=== PATIENT | male | born 1970 | race Caucasian/White ===

== ENCOUNTER 2024-11-25 03:22 | Emergency (ER) | payer MEDICARE, OTHER ==
[2024-11-25 03:38] VITALS: TEMP 98.4
[2024-11-25] MEDS: MORPHINE SULFATE 4 MG/ML SYRINGE IV STA ×2 (03:50→04:38)
[2024-11-25] MEDS: NITROGLYCERIN OINT 1 INCH/GM PACKET TOPICAL STA (03:52)
[2024-11-25 04:11] LABS: Basophils # (A) 0.08 10*3/uL (0.00-0.10); Basophils % (A) 1.1 %; Eosinophils # (A) 0.05 10*3/uL (0.04-0.35); Eosinophils % (A) 0.7 %; HCT 39.6 % (39.6-50.0); HGB 14.2 g/dL (13.0-17.0); Lymphocytes # (A) 1.93 10*3/uL (0.90-5.00); Lymphocytes % (A) 26.0 %; MCH 32.0 pg (27.0-32.0); MCHC 35.9 g/dL (32.0-37.0); MCV 89.2 fL (80.0-97.0); Monocytes # (A) 0.55 10*3/uL (0.20-1.00); Monocytes % (A) 7.4 %; Neutrophils # (A) 4.77 10*3/uL (1.80-7.70); Neutrophils % (A) 64.4 %; Platelet Count 272 10*3/uL (140-440); RBC 4.44 10*6/uL (4.40-5.60); RDW 12.7 % (11.5-14.5); WBC 7.41 10*3/uL (4.50-10.00)
[2024-11-25] MEDS ORDERED: HEPARIN SODIUM 1,000 UN/ML (10ML VL) IV PRN (04:33)
[2024-11-25 04:49] LABS: ALT 34 U/L (4-49); African American GFR (CKD) >90 (>60 ml/min/1.73 sqM); Amylase 49 U/L (30-110); Anion Gap 11 mmol/L; Blood Urea Nitrogen 28 mg/dL (9-20); Calcium 9.4 mg/dL (8.4-10.2); Carbon Dioxide 20 mmol/L (22-30); Chloride 100 mmol/L (98-107); Glucose 408 mg/dL (74-99); Lipase 54 U/L (23-300); Non-African American GFR(CKD) >90 (>60 ml/min/1.73 sqM); Sodium 131 mmol/L (137-145)
[2024-11-25 04:58] LABS: AST 25 U/L (17-59); Albumin 3.7 g/dL (3.5-5.0); Alkaline Phosphatase 71 U/L (38-126); Magnesium 1.7 mg/dL (1.6-2.3); Potassium 4.5 mmol/L (3.5-5.1); Total Protein 6.5 g/dL (6.3-8.2)
--- NOTE | 2024-11-25 05:05 | XR ---
EXAM: XR Chest, 2 Views CLINICAL HISTORY: ITS.REASON XR Reason: Chest Pain TECHNIQUE: Frontal and lateral views of the chest. COMPARISON: No relevant prior studies available. FINDINGS: Lungs: No consolidation. No overt edema. Pleural space: No pleural effusion. No pneumothorax. Heart: Unremarkable. No cardiomegaly. Bones/joints: Unremarkable. No fracture or malalignment. Tubes, lines and devices: Pacemaker leads in place. IMPRESSION: No acute findings in the chest.
[2024-11-25] MEDS: INSULIN REGULAR 100 UNIT/ML VIAL (IV) SQ STA (05:30)
[2024-11-25] MEDS: HEPARIN SODIUM 1,000 UN/ML (10ML VL) IV ONE (05:31)
[2024-11-25] MEDS: HEPARIN SOD,PORK IN 0.45% NACL 25,000 UNIT in 0.45% NACL 1 250ML.BAG IV SCH (05:32)
[2024-11-25 06:24] LABS: Glucose,Whole Blood 321 mg/dL (70-110)
[2024-11-25 06:34] LABS: INR 0.9 (<1.2); Prothrombin Time 10.2 sec (10.0-12.5)
[2024-11-25] MEDS ORDERED: NITROGLYCERIN SL TABS 0.4 MG TAB SUBLINGUAL PRN (07:06)
--- NOTE | 2024-11-25 07:57 | ED ---
Chest Pain HPI - General Chief Complaint: Chest Pain Stated Complaint: Chest Pain Time Seen by Provider: 11/25/24 03:27 Source: patient, EMS Mode of arrival: EMS Limitations: no limitations - History of Present Illness Initial Comments: This patient is a 54-year-old man who states that he has history of previous GA and he believes 7 previous stents. Patient states that 2 to 3 hours ago while he was trying to sleep he noticed substernal left chest pain. There is radiation to the upper extremity, the back and the neck. He also was feeling some shortness of breath and nausea. MD Complaint: chest pain -: hour(s) Onset: during rest Pain Location: left chest Pain Radiation: LUE Severity: severe Quality: aching Consistency: constant Improves With: nothing Worsens With: exertion Anginal Symptoms: nausea, vomiting Treatments Prior to Arrival: nitroglycerin - Related Data Allergies Allergy/AdvReac Type Severity Reaction Status Date / Time No Known Allergies Allergy Verified 11/25/24 03:38 Review of Systems ROS Statement: Those systems with pertinent positive or pertinent negative responses have been documented in the HPI. ROS Other: All systems not noted in ROS Statement are negative. Constitutional: Denies: fever, chills, weakness Eyes: Denies: vision change Respiratory: Denies: cough, dyspnea, wheezes, hemoptysis Cardiovascular: Reports: chest pain. Denies: palpitations, edema, syncope Gastrointestinal: Reports: nausea, vomiting. Denies: abdominal pain, diarrhea, hematemesis, melena, hematochezia Genitourinary: Denies: dysuria, hematuria Musculoskeletal: Denies: back pain Skin: Denies: rash Neurological: Denies: headache, weakness, numbness EKG Findings - EKG Results: EKG: interpreted by ERMD, sinus rhythm (Rate 78 bpm), normal axis, normal ST/T - GA, Pacemaker, Normal: Myocardial infarction: anterior GA (old age or indeterminate) (Possible old anterolateral infarct) Past Medical History Past Medical History: Coronary Artery Disease (CAD), Chest Pain / Angina, Diabetes Mellitus, Hypertension, Myocardial Infarction (GA) History of Any Multi-Drug Resistant Organisms: None Reported Past Surgical History: AICD, Heart Catheterization With Stent, Hernia Repair Past Psychological History: No Psychological Hx Reported Smoking Status: Former smoker Past Alcohol Use History: None Reported Past Drug Use History: Marijuana General Exam Limitations: no limitations General appearance: alert, in no apparent distress Head exam: Present: atraumatic, normocephalic Eye exam: Present: normal appearance. Absent: scleral icterus, conjunctival injection ENT exam: Present: normal oropharynx Neck exam: Present: normal inspection Respiratory exam: Present: normal lung sounds bilaterally. Absent: respiratory distress, wheezes, rhonchi, stridor, accessory muscle use Cardiovascular Exam: Present: regular rate, normal rhythm, normal heart sounds. Absent: systolic murmur, diastolic murmur, rubs, gallop GI/Abdominal exam: Present: soft. Absent: distended, tenderness, guarding, rebound, rigid, mass Extremities exam: Present: normal inspection, normal capillary refill. Absent: pedal edema, calf tenderness Back exam: Present: normal inspection. Absent: CVA tenderness (R), CVA tenderness (L) Neurological exam: Present: alert Skin exam: Present: warm, dry, intact, normal color. Absent: rash Course Vital Signs 11/25/24 11/25/24 11/25/24 03:23 04:46 06:25 Temperature 98.4 F Pulse Rate 63 84 80 Respiratory 18 17 17 Rate Blood Pressure 139/93 140/94 155/99 O2 Sat by Pulse 98 96 98 Oximetry Chest Pain MDM - MDM Patient is a 54-year-old man with significant history of CAD and heavy smoking history. The patient here describing fairly typical cardiac chest pain. The patient has improved with treatment though still having pain. Initial workup is negative but will admit to have serial cardiac enzymes, telemetry monitoring, cardiology consultation. Disposition Clinical Impression: Chest pain Disposition: ADMITTED IP TO THIS HOSP Condition: Fair Is patient prescribed a controlled substance at d/c from ED?: No
[2024-11-25] MEDS: PANTOPRAZOLE 40 MG TABLET PO SCH (08:15)
[2024-11-25] MEDS: SODIUM CHLORIDE 0.9% 1,000 ML IV SCH (08:16)
[2024-11-25 08:19] VITALS: RESP 18
[2024-11-25 09:57] VITALS: BP 140/98; PULSE 86
[2024-11-26] MEDS ORDERED: ASPIRIN 325 MG TAB PO SCH (09:00)
== END 2024-11-25 10:27 | disposition other institution (70) ==
LOC: EC 03:22 → 6NMEDSUR 07:34 → UNDOADMIN 07:34 → UNDODISIN 10:26
DX: R07.2 Precordial pain (principal); Z87.891 Personal history of nicotine dependence
CPT/HCPCS: 36415; 93005; 80053; 82150; 83690; 83735; 84484; 85025; 85610; 85730; 71046; 99285; 96365; 96366; 96375; 96376; J2270; J1644 ×2